=== PATIENT | male | born 1935 | race Caucasian/White ===

== ENCOUNTER → 2016-11-17 | Outpatient (CLI) | payer MEDICARE, MEDICAID ==
[~2016-11-17] VITALS: Ht 152.4 cm; Wt 61.0 kg
[~2016-11-17] MED LIST: AMLO-511 PO; COMB5OS; FERS325 PO; FLUO-125 PO; KETO5DRO82 OP; LISI-662 PO; MULT-12 PO; OMEP20 PO; PREDAOS; SIMV10 PO; TRAM50TA4 PO; VITAD5000 PO
[2016-11-17 14:19] VITALS: BP 117/52
== END | disposition home or self-care (01) ==
LOC: SRCNTR 14:17
PROVIDERS: ATTEND Internal Medicine Cardiovascular Disease
DX: I10 Essential (primary) hypertension (principal); E11.9 Type 2 diabetes mellitus without complications; E78.5 Hyperlipidemia, unspecified; F03.90 Unspecified dementia, unspecified severity, without behavioral disturbance, psychotic disturbance, mood disturbance, and anxiety; F32.9 Major depressive disorder, single episode, unspecified
CPT/HCPCS: G0463

== ENCOUNTER → 2017-01-21 | Outpatient (CLI) | payer MEDICARE, MEDICAID ==
[~2017-01-21] VITALS: Ht 152.4 cm; Wt 62.0 kg
[~2017-01-21] MED LIST changes: +FERR-89 PO; -FERS325 PO; +SIMV-259 PO; -SIMV10 PO
[2017-01-21 15:03] VITALS: BP 140/58
== END | disposition home or self-care (01) ==
LOC: SRCNTR 14:47
PROVIDERS: ATTEND Internal Medicine Cardiovascular Disease
DX: I10 Essential (primary) hypertension (principal); E11.9 Type 2 diabetes mellitus without complications; E78.5 Hyperlipidemia, unspecified; F03.90 Unspecified dementia, unspecified severity, without behavioral disturbance, psychotic disturbance, mood disturbance, and anxiety; F32.9 Major depressive disorder, single episode, unspecified
CPT/HCPCS: G0463